=== PATIENT | female | born 1995 | race Caucasian/White ===

== ENCOUNTER 2020-02-13 18:44 | Day surgery (SDC) | payer MEDICAID, OTHER ==
[2020-02-13 19:13] VITALS: BP 122/69; TEMP 98; BMI 26.2
[2020-02-13] MEDS ORDERED: hydrALAZINE 20 MG/ML VIAL SLOW IVP PRN (20:32)
--- NOTE | 2020-02-13 21:27 | PRG ---
DATE OF SERVICE: 02/13/2020 PRIMARY OB: Nilesh Hamlin, [facility]. CHIEF COMPLAINT: Decreased movement. HISTORY OF PRESENT ILLNESS: The patient is a 25-year-old, G3, P2 female with an intrauterine at 37 weeks and 5 days, presenting with a 1-day history of decreased movement. She reports that she had started noticing yesterday that her baby was moving quite as much as what she was used to, but not enough to give her cause concern. However, when she woke up this morning, she noticed the baby was not moving and then had some sluggish slow movements than she has experienced and presented to her [facility] for evaluation. There, the patient was noted to have heart tones in the 130s and otherwise normal evaluation, but came to the hospital for further testing. The patient denies any leakage of fluid. She denies uterine contractions or vaginal bleeding. She denies any persistent nausea, vomiting or diarrhea, or any recent illness. She denies fever, cough, headache, chest pain, shortness of breath, any new rashes, hip problems, knee problems, or muscle weakness. PAST MEDICAL HISTORY: Negative. PAST SURGICAL HISTORY: Negative. ALLERGIES: NO KNOWN DRUG ALLERGIES. MEDICATIONS: vitamins. SOCIAL HISTORY: Denies drug, alcohol, or tobacco use. OB LABORATORY DATA: Unavailable at time of dictation. REVIEW OF SYSTEMS: Per HPI. PHYSICAL EXAMINATION: VITAL SIGNS: Blood pressure 117/56, heart rate of 83, and saturating 99% on room air. GENERAL: She appears to be in no acute distress. She is alert, oriented, cooperative, and pleasant to interact with. HEAD: Normocephalic and atraumatic. LUNGS: Clear to auscultation bilaterally. HEART: Has a regular rate and rhythm. ABDOMEN: Gravid, soft, and nontender. EXTREMITIES: Nontender and nonedematous. CERVICAL: Per her shopper insights manager earlier in the day, it was closed, thick, and high. heart tracing shows the fetus with a baseline in the 130s with moderate long-term variability, positive 15 x 15 accelerations, no decelerations. Tocometer showing some irritability. Bedside ultrasound was performed for JEANNA. JEANNA was 15 cm. Fetus is noted to be in vertex presentation, placenta more fundal. ASSESSMENT AND PLAN: The patient is a 25-year-old, G3, P2 female with an intrauterine at 37 weeks and 5 days, presenting for decreased movement. The patient has a reactive NST and a normal JEANNA. Reassurance has been given to the patient, and the patient is being discharged home with scheduled followup next week. Job ID: [id number]
== END 2020-02-13 20:53 | disposition home or self-care (01) ==
LOC: L&D/OP 18:44
PROVIDERS: ATTEND Obstetrics & Gynecology
DX: O36.8130 Decreased fetal movements, third trimester, not applicable or unspecified (principal); Z3A.37 37 weeks gestation of pregnancy
CPT/HCPCS: 59025; 76815; 99282